=== PATIENT | female | born 1965 | race Caucasian/White ===

== ENCOUNTER 2020-09-29 10:31 | Emergency (ER) | payer OTHER ==
--- OUTSIDE RECORDS SUMMARY | 2020-09-29 10:35 | XMS REPORT | Continuity of Care Document ---
:1965 Author Organization [facility] t Address [address] [place] [address] [address]. [address] [place] [address] Care Team Providers Name Role Phone Mehrdad Primary Care Physician Loreto Herr Attending Clinician Unavailable Jagdish Ulloa MD Attending Clinician MEHRDAD Attending Clinician Unavailable Noel TEE Attending Clinician GOPI BANERJEE Attending Clinician Unavailable Payers Payer Name Policy Policy Effective Expiration Source Type Number Date Date RENAISSANCE [id number] 2020 [facility] PHYSICIANSRENAISSANCE 00:00:00 - M [facility] [id number]/03/2020-Present CIGSANJIV HEALTHSPRINGCIGNA [id number] 2018 H [facility] 00:00:00 Meth odist [id number] 2019-Prese ntHMO Problems Condition Condition Condition Status Onset Resolution Last Treating Co mments Source Name Details Category Date Date Treatment Clinician Date Thoracic Thoracic Disease Active [facility] radiculopa radiculopa 5-05 Shawna kes - thy thy 00:00: Medical 00 Center Thoracic Thoracic Disease Active Overview: [facility] I [facility] compressio compressio 5-05 T3, mild [facility] - n n 00:00: Medical fracture, fracture, 00 Cent er sequela sequela Right Right Problem Active Univers shoulder shoulder ity of pain pain [place] [facility] ans History of History of Problem Resolve Univers arthritis arthritis d ity of [place] [facility] ans History of History of Problem Resolve Univers back pain back pain d ity of [place] [facility] ans History of History of Problem Resolve Univers heart heart d ity of attack attack [place] [facility] ans History of History of Problem Resolve Univers hypertensi hypertensi d it y of on on [place] [facility] ans Calcific Calcific Problem Active Unive rs tendinitis tendinitis it y of [place] [facility] ans Biceps Biceps Problem Active Univers tendinitis tendinitis it y of of right of right [place] upper upper Physici extremity extremity ans Bursitis, Bursitis, Problem Active Uni vers subacromia subacromia it y of l l [place] [facility] ans Subacromia Subacromia Problem Active U nivers l bursitis l bursitis it y of of right of right [place] shoulder shoulder Physic i joint joint ans Tear of Tear of Problem Active Univers right right ity of [place] Physici tendon, tendon, ans initial initial encounter encounter Allergies, Adverse Reactions, Alerts Allergy Allergy Status Severity Reaction(s) Onset Inactive Treating Comm ents Source Name Type Date Date Clinician Hydrocod Propensi Active Moderate [facility] one-Acet ty to 07-18 [facility] - aminophe adverse 00:00: Medical n reaction 00 Center s Paroxeti Propensi Active Severe Drops b/p [facility] Hcl ty to 07-18 [facility] - adverse 00:00: Medical reaction 00 Center s Tramadol Propensi Active Itching [facility] ty to 07-18 [facility] - adverse 00:00: Medical reaction 00 Center s Hydrocod Propensi Active Itching "hypes [place] one ty to 4-15 up and Methodi adverse 00:00: itching." st reaction 00 s to drug Paroxeti Propensi Active Other (See "made me [facility] ne Hcl ty to Comments) 4-15 pass Methodi adverse 00:00: out." st reaction 00 s to drug hydrocod DA Active SV 2017- [facility] one 0-31 [place] 00[facility]: d 00 [facility] paroxeti DA Active SV 2017-03 [facility] ne 0-31 [place] 00:00: d 00 [facility] Center tramadol DA Active SV 2017-03 [facility] 0-31 [place] 00:00: d 00 Medical Center paroxeti DA Active NC 2016-0 [facility] ne 2-09 Clear 00:00: [place] 00 Regiona l [facility] hydrocod drug Active Univers one allergy ity [facility] Physici ans Paxil drug Active Univers allergy ity of [place] [facility] ans traMADol drug Active Univers HCl TABS allergy ity of [place] [facility] ans Family History Family Member Diagnosis Comments Start Date Stop Date Source Natural father Cancer [facility] St [place] - [facility] Unknown Family Family history of Family History University of Member diabetes mellitus [place] [facility] Unknown Family Family history of Family History University of Member Heart trouble [place] [facility] Unknown Family Family history of Family History University of Member hypertension [place] [facility] i[facility] Unknown Family Family history of Family History University of Member arthritis [place] [facility] ns Unknown Family Family history of Family History University of Member malignant neoplasm [place] [facility] Social History Social Habit Start Date Stop Date Quantity Comments Source History SDOH [facility] - Alcohol Std Drinks [facility] History SDOH [facility] - Alcohol Binge Medical Sudhakar ter Sex Assigned At [facility] St Shawna beckers - [facility] History of tobacco Cigarette Smoker Torres use Confucianist Cigarette 2020-07-24 2020-07-[address] [facility] - pack-years 00:00:00 00:00:00 [facility] Tobacco use and 2020-07-24 2020-07-[address] Shawna kes - exposure 00:00:00 00:00:00 [facility] Alcohol intake 2020-07-24 2020-07-[address] [facility] es - 00:00:00 00:00:00 non-drinker Medical Charlie hernandez (finding) Cigarettes smoked 2020-07-24 2020-07-[address] [facility] - current (pack per 00:00:00 00:00:00 Medical Center day) - Reported History SDOH 2020-07-18 2020-07-[address] [facility] - Alcohol Frequency 00:00:00 00:00:00 Medical Center Smoking Status Start Date Stop Date Source Current every day smoker 2020-07-24 00:00:[address] [facility] Medications Ordered Filled Start Stop Current Ordering Indication Dosage Frequency Signature Comments Components Source Medication Medication Date Date Medication? Clinician (SIG) Name Name HYDROcodone Yes 1{tbl} Take [address] -acetaminop 5-05 tablet by Tatiana luna - hen (NORCO 09:18: mouth Medica l 10-325) 46 every 4 Center 10-325 mg (four) per tablet hours as needed for Pain With benadryl for allergic reaction . ibuprofen Yes 800mg Take [address] (ADVIL,MOTR 5-05 mg by [facility] - [place]) 800 MG 09:18: mouth Medica l tablet 46 every 6 Center (six) hours as needed for Pain. fluticasone Yes 1{spray Q.5D [address] propionate 5-05 } Nasal [facility] - (FLONASE) 09:18: route 2 Medic al 50 46 (two) Center mcg/actuati times on nasal daily. spray gabapentin Yes 400mg Q.[id number] Take [address] (NEURONTIN) 5-05 [id number] mg by L ukes - 400 MG 09:18: 3D mouth 3 Medical capsule 46 (three) Center times daily. atorvastati Yes 40mg QD Take [address] n (LIPITOR) 5-05 by mouth Luke s - 40 MG 09:18: daily. Medical tablet 46 Center meloxicam Yes 15mg QD Take [address] (MOBIC) 15 5-05 by mouth [facility] - MG tablet 09:18: daily. Medica l 46 Center aspirin 81 Yes 81mg QD Take [address] MG EC 5-05 by mouth [facility] - tablet 09:18: daily. Medical 46 Center metoprolol Yes 50mg QD Take [address] succinate 5-05 by mouth [facility] - (TOPROL-XL) 09:18: daily. Medi courtney 50 MG 24 hr 46 Center tablet lisinopriL 2020-0 Yes 2.5mg QD Take 2.[address] (PRINIVIL,Z 5-05 mg by [facility] - ESTRIL) 2.5 09:18: mouth Medic al MG tablet 46 daily. Center metFORMIN 2020-0 Yes 850mg Take [address] (GLUCOPHAGE 5-05 mg by [facility] - ) 850 MG 09:18: mouth 2 Medica l tablet 46 (two) Center times daily with breakfast and dinner. cetirizine 2020-0 Yes 10mg QD Take [address] (ZyrTEC) 10 5-05 by mouth Luke s - MG tablet 09:18: daily. Medica l 46 Center baclofen 2020-0 Yes 10mg Q.[id number] Take [address] (LIORESAL) 5-05 [id number] by mouth 3 [facility] - 10 MG 09:18: 3D (three) Medical tablet 46 times Center daily. ticagrelor 2020-0 Yes 90mg Q.5D Take [address] (Brilinta) 5-05 by mouth 2 Tatiana es - 90 mg Tab 09:18: (two) Medical tablet 46 times Center daily. acetaminoph 2020-0 Yes 1{tbl} Take [address] en-codeine 5-05 tablet by Luke s - (TYLENOL 09:18: mouth Medical #3) 300-30 46 every 4 Center mg per (four) tablet hours as needed for Pain. diphenhydra 2020-0 Yes 25mg QD Take [address] mine HCl 5-05 by mouth [facility] - (BENADRYL 09:18: daily With Me dical ORAL) 46 the Center hydrocodon e for the itch . flash 2020-[address] glucose 5-05 Miscellane [facility] - sensor 09:18: ous route. Medic al (FreeStyle 46 Center Jabari 2 Sensor) Kit metFORMIN 2020-0 Yes 1000mg Q.5D Take 1,000 Torres (GLUCOPHAGE 4-15 mg by Methodi ) 1,000 mg 21:01: mouth 2 st tablet 36 (two) times a day with meals. lisinopriL 2020-0 Yes 20mg QD Take 20 mg [place] (PRINIVIL) 4-15 by mouth Metho di 20 mg 21:01: daily. st tablet 36 aspirin Yes 81mg QD Take 81 mg [place] (ECOTRIN) 4-15 by mouth Method i 81 MG 21:01: daily. st enteric 36 coated tablet ibuprofen No 600mg Q6H Take 1 [place] (ADVIL) 600 4-15 05-15 tablet Metho di MG tablet 00:00: 23:59 ([address] 00 :00 total) by mouth every 6 (six) hours as needed for mild pain or moderate pain for up to 30 days. acetaminoph acute pain 1{tbl} Q6H Take 1-2 Torres en-codeine -15 -25 tablets by Az rufino (TYLENOL 00:00: 23:[address] WITH 00 :00 every 6 CODEINE #3) (six) 300-30 mg hours as per tablet needed for severe pain for up to 10 days .acute pain. methocarbam No 500mg Q.25D Take 1 [place] o[place] -15 -25 tablet Methodi (ROBAXIN) 00:00: 23:59 ([address] 500 MG 00 :00 total) by tablet mouth 4 (four) times a day for 10 days. Vital Signs Vital Name Observation Time Observation Value Comments Source Systolic blood 2020-07-24 09:12:00 117 mm[Hg] [facility] Diastolic blood 2020-07-24 09:12:00 69 mm[Hg] [facility] S [facility] Heart rate 2020-07-24 09:12:00 73 /min [facility] Body temperature 2020-07-24 09:12:00 36.83 Leonei [facility] Respiratory rate 2020-07-24 09:12:00 17 /min [facility] Body height 2020-07-24 09:12:00 162.6 cm [facility] Body weight 2020-07-24 09:12:00 95.255 kg [facility] BMI 2020-07-24 09:12:00 36.05 kg/m2 [facility] Systolic blood 2020-07-04 20:45:00 134 mm[Hg] [place] [facility] pressure Diastolic blood 2020-07-04 20:45:00 79 mm[Hg] [place] on Confucianist pressure Heart rate 2020-07-04 20:45:00 86 /min Brian Germainist Respiratory rate 2020-07-04 20:45:00 18 /min Kenisha jaquez [facility] Oxygen saturation in 2020-07-04 20:45:00 96 /min Brian Germainist Arterial blood by Pulse oximetry Body temperature 2020-07-04 11:23:34 36.44 Leonie Kenisha jaquez [facility] Body height 2020-07-04 11:22:00 162.6 cm Brian [facility]ist Body weight 2020-07-04 11:22:00 95.255 kg Brian Germainist BMI 2020-07-04 11:22:00 36.05 kg/m2 Brian Kumar Procedures Procedure Date / Time Performed Performing Clinician [facility] e MRI THORACIC SPINE WO 2020-07-04 17:34:05 [place]i [place] [facility] CONTRAST MRI CERVICAL SPINE WO 2020-07-04 17:17:00 [place] [facility] CONTRAST UT APPLY LOWER LEG 2020-07-04 12:48:45 Natali [place] on Confucianist SPLINT CT HEAD WO CONTRAST 2020-07-04 12:40:[address] THORACIC SPINE WO 2020-07-04 12:40:19 Natali Lake [place] Confucianist CONTRAST CT CERVICAL SPINE WO 2020-07-04 12:39:59 Natali [place] Confucianist CONTRAST XR RIBS W PA CHEST 2020-07-04 12:30:41 Natali Lake Confucianist RIGHT XR KNEE 1 OR 2 VW 2020-07-04 12:29:55 Natali [place] Confuc[facility]ist RIGHT XR ANKLE 3+ VW RIGHT 2020-07-04 12:27:55 Natali [place] Confucianist XR HAND 3+ VW LEFT 2020-01-03 12:23:20 Trinity Croninist XR ELBOW 3+ VW LEFT 2020-01-03 12:23:02 Trinity Croninto n Confucianist MR Echeverria wo 2017-10-19 00:00:00 [facility] [place] contrast [id number] Physicians History of Back [facility] [place] [facility] History of Cervical [facility] [place] vertebral fusion Physicians History of Arterial [facility] [place] stent placement Physicians Plan of Care Planned Activity Planned Date Details Comments Source Future Scheduled 2020-11-[address] [facility] - Test 00:00:00 (Season Ended) [code = Medic al Center INFLUENZA VACCINE (Season Ended)] Future Scheduled 2020-10-20 INFLUENZA VACCINE [place] [facility] Test 00:00:00 [code = INFLUENZA VACCINE] Future Scheduled 2016-01-31 SHINGLES VACCINES ([address] [facility] - Test 00:00:00 of 2) [code = SHINGLES Medic al Center VACCINES (1 of 2)] Future Scheduled 2016-01-31 BREAST CANCER [facility] thodist Test 00:00:00 SCREENING [code = BREAST CANCER SCREENING] Future Scheduled 2016-01-31 COLONOSCOPY SCREENING [place] [facility] Test 00:00:00 [code = COLONOSCOPY SCREENING] Future Scheduled 2016-01-31 SHINGLES VACCINES (#1) [place] [facility] Test 00:00:00 [code = SHINGLES VACCINES (#1)] Future Scheduled [address] - Test 00:00:00 (procedure) [code = Medical Center 51472029] Future Scheduled [address] [facility] - Test 00:00:00 malignant neoplasm of Medica Center cervix (procedure) [code = 661409733] Future Scheduled 1987 Screening for [facility] thodist Test 00:00:00 malignant neoplasm of cervix (procedure) [code = 240015139] Future Scheduled 1985 DTAP/TDAP/TD VACCINES [facility] - Test 00:00:00 (1 - Tdap) [code = Medical C enter DTAP/TDAP/TD VACCINES (1 - Tdap)] Future Scheduled 1984-01-31 HEPATITIS C SCREENING [facility] - Test 00:00:00 [code = HEPATITIS C Medical Center SCREENING] Future Scheduled 1984-01-31 Hepatitis C screening [place] [facility] Test 00:00:00 (procedure) [code = 582760573] Future Scheduled 1978 COVID-19 VACCINE (1) [facility] - Test 00:00:00 [code = COVID-[address] VACCINE (1)] Future Scheduled 1978 COVID-19 VACCINE (1) [place] [facility] Test 00:00:00 [code = COVID-19 VACCINE (1)] Future Scheduled 1972-01-[address] [facility] - Test 00:00:00 0-64 YRS (1 of 1 - Medical C enter PPSV23) [code = PNEUMOCOCCAL VACCINE 0-64 YRS (1 of 1 - PPSV23)] Future Scheduled [address] [facility] - Test 00:00:00 [facility] breast (procedure) [code = 028507237] Future Scheduled [address] [facility] - Test 00:00:00 [facility] colon (procedure) [code = 474242915] Encounters Start End Encounter Admission Attending Care Care Encounter Source Date/Time Date/Time Type Type Clinicians Facility Department ID 2020-07-04 2020-07-04 [facility] [id number] [place] 00:00:00 00:00:00 NU 741 Method i 2020-01-03 2020-01-03 Outpatient [facility] [id number] [place] 00:00:00 00:00:00 [facility] 593 Method i 2020-01-03 2020-01-03 Outpatient [facility] [id number] [place] 00:00:00 00:00:00 [facility] [address] 2017-12-02 2017-12-02 Appointmen GOPI [facility] Orthopedics [id number] [facility] 14:15:00 14:15:00 t; GOPI BANERJEE, [facility] GERRI BANERJEE [place] ANDREW, M.D. Physici M.D. ans 2017-10-19 2017-10-19 Appointmen GOPI [facility] [id number] [facility] 13:00:00 13:00:00 t; [facility]ER[facility] BANERJEE Orthopedics [facility] Varsha TALLEY M.D. ans Results Test Description Test Test Results Result Source Time Comments Comments MRI Thoracic 2020-06- Interface, Radiology [place] Spine Wo 15 Results Incoming - Method ist Contrast 17:54:23 07/04/2020 5:57 PM CDT EXAMINATION: MRI THORACIC SPINE WO CONTRASTCOMPARISON: NoneCLINICAL HISTORY: r o possible fx ct cervical thoracic show end plate fx at T3 and possibly [id number]: Sagittal and axial MR images of the thoracic spine were obtained. FINDINGS: The mild deformity at superior T3 vertebral body does not show any significant edema. There is very minimal deformity at superior T4. There is an inferior endplate deformity at T5. This appears chronic also. There is mild disc bulge at T5-T6.T7-T8 shows a small right-sided disc protrusion. This has minimal indentation upon the cord.The lower thoracic spine shows mild facet disease.T11-12 shows minimal central spondylosis.The alignment is intact. No acute fracture. The signal within the cord is intact.IMPRESSION: Mild degenerative change. No acute fracture.[id number] MRI Cervical Interface, Radiology [place] Spine Wo 15 Results Incoming - Method ist Contrast 17:27:29 07/04/2020 5:30 PM CDT EXAMINATION: MRI CERVICAL SPINE WO CONTRASTCOMPARISON: NoneCLINICAL HISTORY: r o possible fx ct cervical thoracic show end plate fx at T3 and possibly [id number]: Sagittal and axial MR images of the cervical spine were obtained.FINDINGS: C2-C3 shows minimal left-sided facet disease. C3-4 shows mild facet disease and uncovertebral joint degenerative change and disc bulge.C4-5 shows moderate to mild facet disease. There is mild central spondylosis. There is mild uncovertebral joint degenerative change.Anterior metallic plate and screw artifact is identified from C5 to C7. C7-T1 shows mild facet disease. There is minimal disc bulge.There is mild superior endplate deformity at T3 that shows no edema to suggest an acute fracture.The alignment is intact. The signal within the cord is intact.IMPRESSION: Mild degenerative change. Postoperative change. No significant canal stenosis. The deformity at superior T3 appears chronic.[id number] CT Thoracic Interface, Radiology [place] Spine Wo 15 Results Incoming - Method ist Contrast 12:49:43 07/04/2020 12:52 PM CDT EXAMINATION: CT THORACIC SPINE WO CONTRASTCLINICAL HISTORY: fall landed on head neck and upper backCOMPARISON: NoneTECHNIQUE: Non contrast axial images of the thoracic spine were obtained with coronal and sagittal reconstructed algorithms. CT imaging was performed with iterative reconstruction technique and/or automated exposure control to reduce radiation dose.FINDINGS:There is a normal thoracic kyphosis. Alignment is maintained in the sagittal plane. There are diffuse degenerative changes.There is an T3 superior endplate deformity and to a lesser degree about the left T4 superior endplate favoring the left side. But these demonstrate less than 20% height loss and there is no retropulsion.There is also a cortical irregularity about the inferior T5 endplate that is most certainly in conjunction with a Schmorl's node without definite compression fracture. No traumatic subluxation. No suspicious osseous lesions. No significant posterior disc disease, spinal canal, subarticular zone or neural foraminal stenosis throughout the thoracic spine.There our no displaced rib fractures within the [id number].There is no mass, adenopathy or aneurysm of the visualized soft tissues. Is no evidence for acute traumatic injury to the visualized lungs. There is a partially visualized lower cervical spine ACDF.IMPRESSION: Superior endplate cortical irregularities about T3 and to a lesser degree at T4, these appear to have a chronic appearance however indeterminate without prior for comparison. If there is ongoing clinical concern MRI recommended to rule out acute component.[id number] CT Cervical 2020-06- Interface, Radiology [place] Spine Wo 15 Results Incoming - Method ist Contrast 12:49:07 07/04/2020 12:52 PM CDT EXAMINATION: CT CERVICAL SPINE WO CONTRASTCLINICAL HISTORY: fall landed on head neck upperbackCOMPARISON: None.TECHNIQUE: CT imaging was performed with iterative reconstruction technique and/or automated exposure control to reduce radiation dose.Findings:Spinal canal contents and ligamentous structures are suboptimally evaluated on CT.No acute fractures of the cervical spine.Cervical spine alignment is within normal limits.C5-C7 anterior cranial vertebral screws, surgical plate and disc graft. There is solid bony bridging at disc spaces. No evidence of hardware loosening.Multilevel degenerative changes.T3 superior endplate compression fracture of undetermined age.IMPRESSION:No acute fractures of the cervical spine.T3 superior endplate compression fracture of undetermined age.[id number] Splint 2020-06- Natali Lake, Kenisha ton Application 15 BREEDER HEN SERVICE TECHNICIAN-C 07/04/2020 9:41 Confucianist 12:48:45 PMSplint ApplicationPerformed by: Natali Lake NP-CAuthorized by: Nu Ulloa MD Consent: Consent obtained: Verbal Consent given by: Patient Risks discussed: Skin discoloration, distal paresthesia, pain and swelling Alternatives discussed: No treatment, delayed treatment, referral, observation and alternative treatmentPre-procedure details: Sensation: Normal Skin color: PinkProcedure details: Laterality: Right Location: Ankle Ankle: R ankle Cast type: Short leg Splint type: Short leg Supplies: Elastic bandage, cotton padding and Ybeef-ZjtbySoyt-atkbjvln e details: Pain: Improved Sensation: Normal Skin color: [place] Patient tolerance of procedure: Tolerated well, no immediate complications XR Ribs W Pa 2020-06[facility] Interface, Radiology [place] Chest Right 15 Results Incoming - Metho dist 12:48:36 07/04/2020 12:51 PM CDT EXAMINATION: XR RIBS W IN CHEST RIGHTCLINICAL HISTORY: Fall, acute injury, right lateral rib painCOMPARISON: NoneFINDINGS: There are fractures of the right eighth and ninth ribs anterolaterally but both appear chronic and healed. No other fracture is seen. No acute rib fracture is seen.The lungs are clear. There is no pleural fluid or pneumothorax. Heart size is within normal range. There is a coronary artery stent. There has been C-spine fusion. There is arthritis of both AC joints.IMPRESSION: No acute [id number] XR Knee 1 Or 2 2020-06[facility] Interface, Radiology [facility] Right 15 Results Incoming - Method ist 12:45:52 07/04/2020 12:49 PM CDT EXAMINATION: XR KNEE 1 OR 2 RIGHTCLINICAL HISTORY: Fall, acute injury, knee painCOMPARISON: NoneFINDINGS: Alignment is normal and no fracture is seen.IMPRESSION: Negative [id number] XR Ankle 3+ Vw 2020-06- Interface, Radiology [place] Right 15 Results Incoming - Method ist 12:45:18 07/04/2020 12:48 PM CDT EXAMINATION: XR ANKLE 3 VW RIGHTCLINICAL HISTORY: Fall, acute injuryCOMPARISON: NoneFINDINGS: There is an acute oblique fracture of the distal fibular metaphysis with mild lateral and posterior displacement. No other definite acute fracture is seen. The small bony fragments at the tip of the medial malleolus appear most likely chronic. There is slight widening of the medial ankle joint due to slight lateral talar subluxation. Soft tissue swelling is present mainly laterally. There is mild dorsal midfoot arthritis.IMPRESSION: Acute distal fibular [id number] CT Head Wo 2020-06- Interface, Radiology [facility] Contrast 15 Results Incoming - Method ist 12:44:23 07/04/2020 12:47 PM CDT EXAMINATION: CT HEAD WO CONTRASTCOMPARISON: NoneCLINICAL HISTORY: fall landed on head neck upper backCOMMENTS: Axial CT scan slices of the head were obtained. Sagittal and coronal reconstructions were obtained.CT imaging was performed with iterative reconstruction technique and/or automated exposure control to reduce radiation dose.FINDINGS: There is no significant sinus or mastoid opacification. The bone windows do not show an acute skull fracture.The brain shows no focal suspicious lesion.IMPRESSION: No acute intracranial hemorrhage or mass effect.[id number] BASIC METABOLIC PANEL 2019-05-18 04:36:00 Test Item Value Reference Range Interpretation Comme nts SODIUM (test code = NA) 139 mmol/L 137-145 N POTASSIUM (test code = K) 4.2 mmol/L 3.4-5.0 N CHLORIDE (test code = CL) 107 mmol/L 98-107 N CARBON DIOXIDE (test code = 23 mmol/L 22-30 N CO2) GLUCOSE (test code = GLU) 142 mg/dL 74-106 H BLOOD UREA NITROGEN (test code 15 mg/dL 7-17 N = BUN) GLOMERULAR FILTRATION RATE 111 >60 T he estimated glomerular (test code = GFR) filtration rate is computed usingpatient ra ce, age (>18), sex, and serum creatinine. If anyof the neede d data elements are missing the Laboratory cannot compute an estimation of the glomerular filtration rate. CREATININE (test code = CREAT) 0.6 mg/dL 0.5-1.0 N CALCIUM (test code = CA) 8.8 mg/dL 8.4-10.2 N CBC W/AUTO [id number] 04:29:00 Test Item Value Reference Range Interpretation Comments WHITE BLOOD CELL (test code = 11.8 x10 3/uL 5.0-12.0 N WBC) RED BLOOD CELL (test code = 4.62 x10 6/uL 4.20-5.40 N RBC) HEMOGLOBIN (test code = HGB) 13.7 g/dL 12.0-16.0 N HEMATOCRIT (test code = HCT) 44.4 % 36.0-46.0 N MEAN CELL VOLUME (test code = 96 fL 81-99 N MCV) MEAN CELL HGB (test code = MCH) 29.7 pg 27-31 N MEAN CELL HGB CONCENTRATION 30.9 g/dL 33-37 L (test code = MCHC) RED CELL DISTRIBUTION WIDTH 13.4 % 11.5-15.5 N (test code = RDW) PLATELET COUNT (test code = 261 x10 3/uL 130-400 N PLT) MEAN PLATELET VOLUME (test code 9.7 fL 9.4-16.4 N = MPV) NEUTROPHIL % (test code = NT%) 65.4 % 43-65 H IMMATURE GRANULOCYTE % (test 0.3 % 0.0-2.0 N code = IG%) LYMPHOCYTE % (test code = LY%) 24.9 % 20.5-45.5 N MONOCYTE % (test code = MO%) 7.7 % 5.5-11.7 N EOSINOPHIL % (test code = EO%) 1.4 % 0.9-2.9 N BASOPHIL % (test code = BA%) 0.3 % 0.2-1.0 N NUCLEATED RBC % (test code = 0.0 % 0-1.0 N NRBC%) NEUTROPHIL # (test code = NT#) 7.68 x10 3/uL 2.2-4.8 H IMMATURE GRANULOCYTE # (test 0.04 x10 3/uL 0-0.03 H code = IG#) LYMPHOCYTE # (test code = LY#) 2.93 x10 3/uL 1.3-2.9 H MONOCYTE # (test code = MO#) 0.90 x10 3/uL 0.3-0.8 H EOSINOPHIL # (test code = EO#) 0.16 x10 3/uL 0.0-0.2 N BASOPHIL # (test code = BA#) 0.04 x10 3/uL 0.0-0.1 N [id number] 10:47:00 Test Item Value Reference Range Interpretation Comments ACT-ISTAT (test code = ACTI) 263 SEC 74-125 H CBC W/AUTO [id number] 06:42:00 Test Item Value Reference Range Interpretation Comments WHITE BLOOD CELL (test code = 8.4 x10 3/uL 5.0-12.0 N WBC) RED BLOOD CELL (test code = 4.60 x10 6/uL 4.20-5.40 N RBC) HEMOGLOBIN (test code = HGB) 14.3 g/dL 12.0-16.0 N HEMATOCRIT (test code = HCT) 43.4 % 36.0-46.0 N MEAN CELL VOLUME (test code = 94 fL 81-99 N MCV) MEAN CELL HGB (test code = MCH) 31.1 pg 27-31 H MEAN CELL HGB CONCENTRATION 32.9 g/dL 33-37 L (test code = MCHC) RED CELL DISTRIBUTION WIDTH 13.6 % 11.5-15.5 N (test code = RDW) PLATELET COUNT (test code = 270 x10 3/uL 130-400 N PLT) MEAN PLATELET VOLUME (test code 9.7 fL 9.4-16.4 N = MPV) NEUTROPHIL % (test code = NT%) 49.9 % 43-65 N IMMATURE GRANULOCYTE % (test 0.4 % 0.0-2.0 N code = IG%) LYMPHOCYTE % (test code = LY%) 40.7 % 20.5-45.5 N MONOCYTE % (test code = MO%) 6.7 % 5.5-11.7 N EOSINOPHIL % (test code = EO%) 1.8 % 0.9-2.9 N BASOPHIL % (test code = BA%) 0.5 % 0.2-1.0 N NUCLEATED RBC % (test code = 0.0 % 0-1.0 N NRBC%) NEUTROPHIL # (test code = NT#) 4.21 x10 3/uL 2.2-4.8 N IMMATURE GRANULOCYTE # (test 0.03 x10 3/uL 0-0.03 N code = IG#) LYMPHOCYTE # (test code = LY#) 3.42 x10 3/uL 1.3-2.9 H MONOCYTE # (test code = MO#) 0.56 x10 3/uL 0.3-0.8 N EOSINOPHIL # (test code = EO#) 0.15 x10 3/uL 0.0-0.2 N BASOPHIL # (test code = BA#) 0.04 x10 3/uL 0.0-0.1 N PROTHROMBIN [id number] 06:19:00 Test Item Value Reference Range Interpretation Comments PROTHROMBIN TIME 10.9 SECONDS 9.2-12.1 N PATIENT (test code = PTP) INTERNATIONAL NORMAL 1.0 The INR is to be used RATIO (test code = only for monitoring INR) ORAL ANTICOAGULANTTH ERAPY. Indicati on INR Value1. Prophylaxis/sharon atment of: Venous Thrombosis, Pul monary Embolism 2.0 - 3.02. Preventi on of systemic emboli sm from: Tiss ue heart valves 2.0 - 3.0 Acute myocardial infa rction (to present systemic emboli sm)* 2.0 - 3.0 Valvular heart disease 2.0 - 3.0 Atrial fibrillation 2.0 - 3.03. Chairman Ceo al prosthetic valv es (high risk) 2.5 - 3.5 * If oral anticoagulant t herapy is elected to preventrecurren t myocardial infa rction, an INR of 2.5-3 .5 isrecommended, consistent with Food and Drug Administrationr ecommen dations. IS PATIENT ON ANTICOAGULANTS ? NOLIST ANTICOAGULANT/ANTI PLT MEDICATION: PROCEDURESpec Comments:PROCEDURETHROMBOPLASTIN TIME [id number] 06:19:00 Test Item Value Reference Range Interpretation Comments THROMBOPLASTIN TIME 29.1 SECONDS 23.4-37.0 N Therap eutic Range PARTIAL (test code = for Hep brittany PTT) EFFECTIVE Heparin IU/mL aPT T Seconds0.3 64.30.7 88.8 IS PATIENT ON ANTICOAGULANTS ? NOLIST ANTICOAGULANT/ANTI PLT MEDICATION: PROCEDURESpec Comments:PROCEDUREBASIC METABOLIC [id number] 06:17:00 Test Item Value Reference Range Interpretation Comments SODIUM (test code = 137 mmol/L 137-145 N NA) POTASSIUM (test code 4.1 mmol/L 3.4-5.0 N = K) CHLORIDE (test code = 105 mmol/L 98-107 N CL) CARBON DIOXIDE (test 24 mmol/L 22-30 N code = CO2) GLUCOSE (test code = 129 mg/dL 74-106 H GLU) BLOOD UREA NITROGEN 14 mg/dL 7-17 N (test code = BUN) GLOMERULAR FILTRATION 137 >60 The es timated RATE (test code = glomerular filtration GFR) rate is compute d usingpatient ra ce, age (>18), sex, and serum creatinine. If anyof the needed data elements are mi ssing the Laboratory cannot compute an blu mation of the glomerul ar filtration rate . CREATININE (test code 0.5 mg/dL 0.5-1.0 N = CREAT) CALCIUM (test code = 8.9 mg/dL 8.4-10.2 N CA) - CT C-SPINE W/O [id number] 13:31:00 FAX: Davis Palma MD [phone] [place]: St: ADM Name: ASTRID SOTO [facility] : 1965 Age/S: 54/F [address] Unit: [id number] Loc: C.[address] [place] [address] Phys: Davis Diaz MD Acct: [id number] Dis Date: Status: ADM IN PHONE #: [phone] Exam Date: 05/16/2019 1315 FAX #: [phone] Reason: C RADICULOPATHY EXAMS: CPT CODE: [id number] CT C-SPINE W/O CONT [id number] EXAM: - CT C-SPINE W/O CONT HISTORY: Cervical radiculopathy Location code:C3 TECHNIQUE: Axial tomograms through the cervical spine were obtained without intravenous contrast. Sagittal and coronal reformatted images are provided. One or more of the following dose reduction techniques were used: Automated exposure control, adjustment of the mA and/or kV according to patient size, and/or utilization of iterative reconstruction technique. DLP: 282 mGy-cm. COMPARISON: 04/18/2014 FINDINGS: ACDF changes from C5 through C7 are similar. The hardware appears intact and fully engaged. Degenerative disc disease at C4-5 is unchanged. Mild diffuse cervical facet arthropathy is similar to prior exam. Vertebral body heights and alignment are appropriate. There is no acute fracture. Prevertebral soft tissues and predental space are maintained. IMPRESSION: 1. No acute osseous abnormality. at 1331 Reported and signed by: Jorje Escobedo MD CC: Davis Diaz MD Technologist: ANA BUTLER Trnscrd Dt/Tm: 05/16/2019 (1701) t.[email or web address] Orig Print D/T: S: 05/16/2019 (3654 PAGE 1 Signed ReportCARDIAC ENZYMES [id number] 18:01:00 Test Item Value Reference Range Interpretation Comments TROPONIN-I < 0.012 ng/mL 0.012-0.033 L (test code = TROPI) Pleas e be advised of the updated reference range s for the new Chemistry instrumentation . * * VITROS TROPONIN I CRITERIANORM AL PATIENT W/O CIRCULATING TNI: 0.012-0.033 ng/mLCIRCULATIN G TNI PRESENT: 0.034- 0.119 ng/mL(MAY BE AT RISK OF AMI)AMI DIAGNOS TIC CUTOFF: >/= 0.1 20 ng/mL~~~~~~~~~~ ~~~~~~~~~~ ~~~~~~~~~~~~~~~ ~~~~~~~~~~ ~~~~~~~~~~~~~~T he use of serial sampling and testing protoco l is arecommended pr actice.An elevated tropon in level alone is often not sufficient dumont iagnosis of myocardial i nfarction. Troponin result s obtained by different as says may vary.Evaluation of the extent of myoca rdial damage based on increase of troponin wou ld be valid only if similarmethodol ogy is used.~~~~~~~~~~ ~~~~~~~~~~ ~~~~~~~~~~~~~~~ ~~~~~~~~~~ ~~~~~~~~~~~~~~ - CTA CHEST FOR [id number] 15:20:00 FAX: Davis Palma MD [phone] [place]: St: ADM FAX: Peter Wills MD [phone] Name: ASTRID SOTO [facility] : 1965 Age/S: 54/F [address] Unit: [id number] Loc: [place] [address] Phys: Peter Woodson MD Acct: [id number] Dis Date: Status: ADM IN PHONE #: [phone] Exam Date: 05/15/2019 1511 FAX #: [phone] Reason: chest pain/back pain EXAMS: CPT CODE: [id number] [place] [address] LOCATION: T18 EXAM: CTA CHEST WITH CONTRAST, PE PROTOCOL INDICATION: chest pain/backpain COMPARISON: Chest x-ray May 04, 2018 TECHNIQUE: Helically acquired axial CT images of the chest were obtained with reconstructions in the coronal and sagittal planes. 100 ml of Isovue 370 was given intravenously. Up-to-date CT equipment and radiation dose reduction techniques were utilized. Automatic exposure control was utilized. MIP coronal reformats provided. FINDINGS: Limited views the inferior neck soft tissuesare normal. No pulmonary embolism is seen. No aortic dissection or aneurysm is identified. The heart is normal in size. No pericardial effusion is seen. No mediastinal or hilar adenopathy is seen. The trachea and main bronchi are patent. Dependent lower lobe subsegmental ectasis present. No consolidation or pleural effusion is seen.Left adrenal nodule present with density consistent with adenoma. This measures 2.6 cm in size. Upper abdomen is otherwise unremarkable. Endplate osteophytes spine present.Peripheral soft tissues are unremarkable. IMPRESSION: No pulmonary embolism. No aortic dissection or aneurysm. Mild dependent bilateral lower lobe subsegmental atelectasis. Left adrenal adenoma. at 1520 Reported and signed by: Erich Everett MD PAGE 1 Signed Report (CONTINUED) FAX: Davis Palma MD [phone] [place]: St: ADM FAX: Peter Wills MD [phone] Name: ASTRID SOTO [facility] : 1965 Age/S: 54/F [address] Unit: [id number] Loc: [place] [address] Phys: Peter Woodson MD Acct: [id number] Dis Date: Status: A DM IN PHONE #: [phone] Exam Date: 05/15/2019 1511 FAX #: [phone] Reason: chest pain/back pain EXAMS: CPT CODE: [id number] [place] [address] <Continued> CC: Liz Diaz MD; Peter Woodson MD Technologist: WASHINGTON BENTON; Jessica Gravesscrd Dt/Tm: 05/15/2019 (6170) [email or web address].[email or web address] Orig Print D/T: S: 05/15/2019 (1523 PAGE 2 Signed ReportBEDSIDE CREATININE 2019-05-15 15:09:00 Test Item Value Reference Range Interpretation Comments BEDSIDE CREATININE (test code = 0.5 mg/dL 0.52-1.04 L CREATBED) CARDIAC ENZYMES [id number] 12:34:00 Test Item Value Reference Range Interpretation Comments TROPONIN-I < 0.012 ng/mL 0.012-0.033 L (test code = TROPI) Pleas e be advised of the updated reference range s for the new Chemistry instrumentation . * * VITROS TROPONIN I CRITERIANORM AL PATIENT W/O CIRCULATING TNI: 0.012-0.033 ng/mLCIRCULATIN G TNI PRESENT: 0.034- 0.119 ng/mL(MAY BE AT RISK OF AMI)AMI DIAGNOS TIC CUTOFF: >/= 0.1 20 ng/mL~~~~~~~~~~ ~~~~~~~~~~ ~~~~~~~~~~~~~~~ ~~~~~~~~~~ ~~~~~~~~~~~~~~T he use of serial sampling and testing protoco l is arecommended pr actice.An elevated tropon in level alone is often not sufficient dumont iagnosis of myocardial i nfarction. Troponin result s obtained by different as says may vary.Evaluation of the extent of myoca rdial damage based on increase of troponin wou ld be valid only if similarmethodol ogy is used.~~~~~~~~~~ ~~~~~~~~~~ ~~~~~~~~~~~~~~~ ~~~~~~~~~~ ~~~~~~~~~~~~~~ LIPID PROFILE (CORONARY RISK)2019-05-15 08:06:00 Test Item Value Reference Range Interpretation Comments TRIGLYCERIDES (test 149 mg/dL TRIGLYCE RIDES code = TRIG) REFERENCE RANGE:Normal: < 150 mg/dLBorderline High: 150-199 mg/dLHigh: 200- 499 mg/dLVery High: >=500 mg/dL CHOLESTEROL (test 176 mg/dL CHOLESTERO L code = CHOL) REFERENCE RANGE:DESIRABLE : < 200 mg/dLBORDER LINE: 200-239 mg/dLHI GH: >=240 mg/dL HDL CHOLESTEROL (test 49 mg/dL 40-59 N code = HDL) LIPOPROTEIN LDL (test 103.34 mg/dL 32-99 H code = LDLC) CORONARY RISK FACTOR 3.59 (test code = RISK) CHOL/HD L RISK MALE: 1/2 AVG 3.43 FEMALE: 1/2 AVG 3.27 AVG 4.97 AVG 4.44 2X AVG 9.55 2X AVG 7 .05 3X A VG 23.39 3X AVG 11.04~~~~~~~~~~ ~~~~~ ~~~~~~~~~~~~~~~ ~~~~~ ~~~~~~~~~~~~~~~ ~~~~~ ~~~~~National Cholesterol Education (NCEP ) Guidelines:~~~~ ~~~~~ ~~~~~~~~~~~~~~~ ~~~~~ ~~~~~~~~~~~~~~~ ~~~~~ ~~~~~~~~~~~ HDL Cholesterol<4 0mg/d L: HDL Choleste rol (Major risk fac tor for CHD)>60mg/d L: HDL Cholesterol (Negative risk factor for CHD)40-59mg/dL: Borderline Risk * *LDL Cholesterol<1 00mg/ dL: Desirable L DL-C awkmjvaftyorf24 0-159 mg/dL: Borderli ne High Risk LDL-C tfdrpesghaxjc29 0-189 mg/dL: High ris k LDL-C concentra tion HDL-LDL Cholest beth is affected by a number of facto rs suchas smoking, age and sex.~~~~~~~~~~~ ~~~~~ ~~~~~~~~~~~~~~~ ~~~~~ ~~~~~~~~~~~~~~~ ~~~~~ ~~~~ CARDIAC ENZYMES [id number] 08:06:00 Test Item Value Reference Range Interpretation Comments TROPONIN-I (test code = TROPI) ng/mL 0.012-0.033 LIPID PROFILE (CORONARY RISK)2019-05-15 08:06:00 Test Item Value Reference Range Interpretation Comments TRIGLYCERIDES (test 149 mg/dL TRIGLYCE RIDES code = TRIG) REFERENCE RANGE:Normal: < 150 mg/dLBorderline High: 150-199 mg/dLHigh: 200- 499 mg/dLVery High: >=500 mg/dL CHOLESTEROL (test 176 mg/dL CHOLESTERO L code = CHOL) REFERENCE RANGE:DESIRABLE : < 200 mg/dLBORDER LINE: 200-239 mg/dLHI GH: >=240 mg/dL HDL CHOLESTEROL (test 49 mg/dL 40-59 N code = HDL) LIPOPROTEIN LDL (test 103.34 mg/dL 32-99 H code = LDLC) CORONARY RISK FACTOR 3.59 (test code = RISK) CHOL/HD L RISK MALE: 1/2 AVG 3.43 FEMALE: 1/2 AVG 3.27 AVG 4.97 AVG 4.44 2X AVG 9.55 2X AVG 7 .05 3X A VG 23.39 3X AVG 11.04~~~~~~~~~~ ~~~~~ ~~~~~~~~~~~~~~~ ~~~~~ ~~~~~~~~~~~~~~~ ~~~~~ ~~~~~National Cholesterol Education (NCEP ) Guidelines:~~~~ ~~~~~ ~~~~~~~~~~~~~~~ ~~~~~ ~~~~~~~~~~~~~~~ ~~~~~ ~~~~~~~~~~~ HDL Cholesterol<4 0mg/d L: HDL Choleste rol (Major risk fac tor for CHD)>60mg/d L: HDL Cholesterol (Negative risk factor for CHD)40-59mg/dL: Borderline Risk * *LDL Cholesterol<1 00mg/ dL: Desirable L DL-C mxtfbogqcfxgd62 0-159 mg/dL: Borderli ne High Risk LDL-C lanxhbzcnzjac35 0-189 mg/dL: High ris k LDL-C concentra tion HDL-LDL Cholest beth is affected by a number of facto rs suchas smoking, age and sex.~~~~~~~~~~~ ~~~~~ ~~~~~~~~~~~~~~~ ~~~~~ ~~~~~~~~~~~~~~~ ~~~~~ ~~~~ CARDIAC ENZYMES [id number] 08:06:00 Test Item Value Reference Range Interpretation Comments TROPONIN-I < 0.012 ng/mL 0.012-0.033 L (test code = TROPI) Yossi lindquist be advised of the updated reference range s for the new Chemistry instrumentation . * * VITROS TROPONIN I CRITERIANORM AL PATIENT W/O CIRCULATING TNI: 0.012-0.033 ng/mLCIRCULATIN G TNI PRESENT: 0.034- 0.119 ng/mL(MAY BE AT RISK OF AMI)AMI DIAGNOS TIC CUTOFF: >/= 0.1 20 ng/mL~~~~~~~~~~ ~~~~~~~~~~ ~~~~~~~~~~~~~~~ ~~~~~~~~~~ ~~~~~~~~~~~~~~T he use of serial sampling and testing protoco l is arecommended pr actice.An elevated tropon in level alone is often not sufficient dumont iagnosis of myocardial i nfarction. Troponin result s obtained by different as says may vary.Evaluation of the extent of myoca rdial damage based on increase of troponin wou ld be valid only if similarmethodol ogy is used.~~~~~~~~~~ ~~~~~~~~~~ ~~~~~~~~~~~~~~~ ~~~~~~~~~~ ~~~~~~~~~~~~~~ LIPID PROFILE (CORONARY RISK)2019-05-15 07:54:00 Test Item Value Reference Range Interpretation Comments TRIGLYCERIDES (test 149 mg/dL TRIGLYCE RIDES code = TRIG) REFERENCE RANGE:Normal: < 150 mg/dLBorderline High: 150-199 mg/dLHi gh: 200-499 mg/dLVe ry High: >=500 mg/ dL CHOLESTEROL (test code 176 mg/dL VIRI STEROL REFERENCE = CHOL) RANGE:DESIRABLE : < 200 mg/dLBORDERLINE : 200-239 mg/dLHI GH: >=240 mg/dL HDL CHOLESTEROL (test 49 mg/dL 40-59 N code = HDL) LIPOPROTEIN LDL (test mg/dL 32-99 code = LDLC) CORONARY RISK FACTOR 3.59 (test code = RISK) CHOL/HDL RISK MALE: 1/2 AVG 3.43 FEMALE: 1/2 AV G 3.27 AVG 4.97 AVG 4.44 2X AVG 9.55 2X AVG 7.05 3X AVG 23.39 3X AVG 11.04~~~~~~~~~~ ~~~~~~~ ~~~~~~~~~~~~~~~ ~~~~~~~ ~~~~~~~~~~~~~~~ ~~~~~~N ational Cholest beth Education (NCEP ) Guidelines:~~~~ ~~~~~~~ ~~~~~~~~~~~~~~~ ~~~~~~~ ~~~~~~~~~~~~~~~ ~~~~~~~ ~~~~~ HDL Cholesterol<4 0mg/dL: HDL Cholesterol (Major risk factor for CHD)>60mg/dL: H DL Cholesterol (Ne gative risk factor for CHD)40-59mg/dL: Borderline Risk L DL Cholesterol<1 00mg/dL : Desirable LDL -C pjwbqkdbkaxrw48 0-159mg /dL: Borderline High Risk LDL-C zizwxoavvhpff22 0-189mg /dL: High risk LDL-C concentration H DL-LDL Cholesterol is affected by a n umber of factors such as smoking, age an d sex.~~~~~~~~~~~ ~~~~~~~ ~~~~~~~~~~~~~~~ ~~~~~~~ ~~~~~~~~~~~~~~~ ~~~~~ CARDIAC ENZYMES [id number] 07:54:00 Test Item Value Reference Range Interpretation Comments TROPONIN-I (test code = TROPI) ng/mL 0.012-0.033 TROPONIN I [id number] 07:17:00 Test Item Value Reference Range Interpretation Comments TROPONIN I RAPID 0.00 ng/mL 0.00-0.079 N ISTAT (test code = TROPONIN I TROPIRAP) CRITERIA0.00-0. 08 ng/mL - Negative>0.08 n g/mL - Positive The us e of serial sampling and te sting protocol is are commended practice.An germania vated troponin level alone is often not suffi cient fordiagnosis of myocardial infarction. Tro ponin results obtaine d by different assay s may vary.Evaluation of the extent of myoca rdial damage based on increase of troponin would be valid only if similar methodology is used. BASIC METABOLIC [id number] 08:44:00 Test Item Value Reference Range Interpretation Comments SODIUM (test code = NA) 138 mEq/L 134-147 N POTASSIUM (test code = 3.9 mEq/L 3.4-5.0 N K) CHLORIDE (test code = 108 mEq/L 100-108 N CL) CARBON DIOXIDE (test 24 mEq/L 21-33 N code = CO2) ANION GAP (test code = 10 0-20 N GAP) GLUCOSE (test code = 119 mg/dL 70-110 H GLU) BLOOD UREA NITROGEN 11 mg/dL 7-18 N (test code = BUN) GLOMERULAR FILTRATION 75.3 90-95 L Units of measure = RATE (test code = GFR) ml/mi n/1.73 m2 CREATININE (test code = 0.8 mg/dL 0.6-1.3 N CREAT) CALCIUM (test code = 8.0 mg/dL 8.0-10.5 N CA) CBC W/AUTO [id number] 08:36:00 Test Item Value Reference Range Interpretation Comments WHITE BLOOD CELL (test code = 13.72 x10 3/uL 4.5-11.0 H WBC) RED BLOOD CELL (test code = 3.49 x10 6/uL 3.54-5.02 L RBC) HEMOGLOBIN (test code = HGB) 10.3 g/dL 11.0-15.0 L HEMATOCRIT (test code = HCT) 31.9 % 33.0-45.0 L MEAN CELL VOLUME (test code = 91.4 fL 81.0-99.0 N MCV) MEAN CELL HGB (test code = 29.5 pg 27.0-33.0 N MCH) MEAN CELL HGB CONCETRATION 32.3 g/dL 33.0-37.0 L (test code = MCHC) RED CELL DISTRIBUTION WIDTH CV 13.6 % 11.5-14.5 N (test code = RDW) RED CELL DISTRIBUTION WIDTH SD 45.2 fL 37.0-54.0 N (test code = RDW-SD) PLATELET COUNT (test code = 265 x10 3/uL 150-400 N PLT) MEAN PLATELET VOLUME (test 10.0 fL 7.0-9.0 H code = MPV) NEUTROPHIL % (test code = NT%) 62.3 % 56.0-77.0 N IMMATURE GRANULOCYTE % (test 0.3 % 0.0-2.0 N code = IG%) LYMPHOCYTE % (test code = LY%) 27.1 % 14.0-32.0 N MONOCYTE % (test code = MO%) 10.0 % 4.8-9.0 H EOSINOPHIL % (test code = EO%) 0.1 % 0.3-3.7 L BASOPHIL % (test code = BA%) 0.2 % 0.0-2.0 N NUCLEATED RBC % (test code = 0.0 % 0-0 N NRBC%) NEUTROPHIL # (test code = NT#) 8.55 x10 3/uL 2.0-7.6 H IMMATURE GRANULOCYTE # (test 0.04 x10 3/uL 0.00-0.03 H code = IG#) LYMPHOCYTE # (test code = LY#) 3.72 x10 3/uL 1.0-3.8 N MONOCYTE # (test code = MO#) 1.37 x10 3/uL 0.1-0.8 H EOSINOPHIL # (test code = EO#) 0.01 x10 3/uL 0.0-0.2 N BASOPHIL # (test code = BA#) 0.03 x10 3/uL 0.0-0.2 N NUCLEATED RBC # (test code = 0.00 x10 3/uL 0.0-0.1 N NRBC#) MANUAL DIFF REQUIRED (test NO code = MDIFF) - XR PELVIS 03/23 [id number] 10:59:00 FAX: Washington Giles [phone] [place]: St: ADM FAX: Juli Larry [phone] FAX: Jorje Paniagua [phone] Name: ASTRID SOTO [facility] : 1965 Age/S: 53/F [address] [place] [address] Unit #: [id number] Loc: [place] [address] Phys: Jorje Crocker Acct: [id number] Dis Date: Status: ADM IN PHONE #: [phone] Exam Date: 06/27/2018 1057 FAX #: [phone] Reason: Post op KYAW EXAMS: CPT CODE: [id number] XR PELVIS 1/2 VIEWS 99281 PELVIS AP VIEW 06/27/2018 COMPARISON: None CLINICAL HISTORY: Post op KYAW FINDINGS: No acute fracture or dislocation is noted. A left hip prosthesis is present and is in anatomic alignment. Air is seen in the soft tissues of the left hip secondary to the recent surgery. Joint space narrowing noted in the right hip joint. CONCLUSION: Status post left hip hemiarthroplasty. at 1054 Reported and signed by: Michael Tidwell M.D. CC: Washington Roy MD; Marilu Bruner; Jorje TEE Technologist: RT Bettie(Artis) Trnscrd Date/Time/By: 06/27/2018 (5130) : By: [email or web address] Orig Print D/T: S: 06/27/2018 (8523) PAGE 1 Signed Report- XR FLUOROSCOPY 0-60 [id number] 10:13:00 FAX: Washington Giles [phone] [place]: St: [facility] FAX: Juli Larry [phone] Name: ASTRID SOTO [facility] : 1965 Age/S: 53/F [address] [place] [address] Unit #: [id number] Loc: [place] [address] Phys: Washington Roy MD Acct: [id number] Dis Date: Status: ADM IN PHONE #: [phone] Exam Date: 06/27/2018 0930 FAX #: [phone] Reason: LEFT HIP OSTEOARTHRITIS EXAMS: CPT CODE: [id number] XR FLUOROSCOPY 0-60 MIN 34397 Fluoroscopic guidance was provided by the radiology department for intraoperative procedure. Any images obtained will be interpreted by the performing physician. Fluoro time: 40 seconds offluoroscopy time. Reference air kerma: 14.4 mGy. END OF IMPRESS ION SL: [id number] at 1013 Reported and signed by: Nu Cronin M.D. CC: Washington Roy MD; Marilu Bruner Technologist: Jennifer Weiss RT(R); RT Babatunde(R) Trnmejyotsna Date/Time/By: 06/27/2018 (1013) : By: Obed Orig Print D/T: S: 06/27/2018 (1016) PAGE 1 Signed ReportHCG SERUM [id number] 10:45:00 Test Item Value Reference Range Interpretation Comments HCG SERUM QUAL (test code = SERUM NEGATIVE NEGATIVE HCGQL) SURGICAL [id number] 07:46:00 RUN DATE: 05/12/18 [facility] *LIVE* PAGE 1 RUN TIME: 10 Specimen Inquiry RUN USER: INTERFACE PATIENT: ASTRID SOTO LOC: [place] #: [id number] AGE/SX: 53/F ROOM: [place] RE05/06/18REG DR: Radhames Rodriguez : [birth year] BED: 3 DIS: 05/06/18 STATUS: DIS IN TLOC: SPEC #: [id number] RECD: 05/06/18 STATUS: TEVIN REQ #: [id number] TYLER: 05/06/[address]: Radhames Rodriguez MD ENTERED: 05/11/18 SP TYPE: SURG SPEC OTHR DR: Marilu Bruner MD ORDERED: GM LEVEL 4 CODES: [id number] - VERTEBRA, NOS [id number] - SOFT TISSUES, N COPIES TO: Marilu Martinez MD [address] [address] [place] [address] [place] [address] [facility] [address] [place] [address] PROCEDURES: GM LEVEL 4 (Incomplete) TISSUES: 1. VERTEBRA, NOS - Bone, L3-4, segments 2. SOFT TISSUES, NOS - Soft tissues, L3-4, segments FINAL DIAGNOSIS Bone, L3-4, segments: Degenerative changes. Soft tissue, L3-4, segments: Benign fibroadipose tissue. GROSS AND MICROSCOPIC GROSS DESCRIPTION: Received in formalin and labeled "lamina" are multiple apple fibrous, bony, and cartilaginous fragments, 2.7 cm in largest dimension the aggregate. Entirely submitted after decalcification. Specimen #2 are 2 segments of pink-apple tissue measuring 0.6 cm in largest dimension the aggregate. Entirely submitted (B). MICROSCOPIC EXAMINATION: Sections reveal fragments of bone, cartilage, and soft tissue with degenerative changes. The second specimen reveals benign fibroadipose tissue. Clinical correlation is recommended. CONTINUED ON NEXT PAGE RUN DATE: 05/12/18 [facility] *LIVE* PAGE 2 RUN TIME: 745 Specimen Inquiry RUN USER: INTERFACE SPEC #: [id number] PATIENT: ASTRID SOTO #[id number] (Continued) POST-OP DIAGNOSIS None givenPRE-OP DIAGNOSIS Lumbar stenosis with neurgenic claudication Signed SIGNATURE ON FILE Queta Rodriguez MD 05/12/18 0746 END OF REPORT - XR FLUOROSCOPY 0-60 MIN 2018-05-06 15:02:00 FAX: Marilu Larry [phone] [place]: St: ADM FAX: Radhames Jackson [phone] Name: ASTRID SOTO [facility] : 1965 Age/S: 53/F [address] [place] [address] Unit #: [id number] Loc: [place] [address] Phys: Radhames Rodriguez MD Acct: [id number] Dis Date: Status: ADM IN PHONE #: [phone] Exam Date: 05/06/2018 1031 FAX #: [phone] Reason: LUMBAR STENOSIS WITH NEUROGENIC CLAUDICATION EXAMS: CPT CODE: [id number] XR FLUOROSCOPY 0-60 MIN 92188 Intraprocedural fluoroscopy was provided by the Department of Radiology. Any images obtained were interpreted by the surgeon intraoperatively. Reference air kerma: 7.02 mGy, fluoroscopy time 8 seconds SL: [id number] at 1502 Reported and signed by: Joe Verma M.D. CC: Marilu Bruner; Radhames Rodriguez MD Technologist: DENISSE Butcher) Trnscrd Date/Time/By: 05/06/2018 (2062) : By: [email or web address] Orig Print D/T: S: 05/06/2018 (4431) PAGE 1 Signed Report- XR CHEST 2 [id number] 10:48:00 FAX: Nereyda BrunerJorgemariyacali Roth [phone] [place]: St: PRE FAX: Radhames Jackson [phone] Name: ASTRID SOTO [facility] [place] : 1965 Age/S: 53/F [address] [place] [address] Unit #: [id number] Loc: [place] [address] Phys: Radhames Rodriguez MD Acct: [id number] Dis Date: Status: PRE IN PHONE #: [phone] Exam Date: 05/04/2018 1004 FAX #: [phone] Reason: PREOP EXAMS: CPT CODE: [id number] XR CHEST 2 V 72839 Patient: ASTRID SOTO. : 1965; Age: 53 years; Gender: Female. MR: [id number]. Ordering physician: Radhames Rodriguez MD. CHEST 2 VIEWS: HISTORY: Preoperative evaluation, low back pain, lumbar laminectomy. COMPARISON: Chest x-ray 09/01/2015. FINDINGS: Frontal and lateral views of the chest were obtained. The lungs are clear bilaterally. The cardiomediastinal silhouette and pulmonary vasculature are unremarkable. The partially visualized upper abdomen is unremarkable. IMPRESSION: Noacute disease in the chest. SL: [id number] Electronically S igned by Varsha Whitten on 05/04/2018 at 1048 Reported and signed by: Jerrod Whitten M.D. CC: Marilu Bruner; Radhames Rodriguez MD Technologist: Homa Romero RT(R) Trnscrd Date/Time/By: 05/04/2018 (2135) : By: [email or web address] Orig Print D/T: S: 05/04/2018 (8240) PAGE 1 Signed ReportURINALYSIS [id number] 10:19:00 Test Item Value Reference Range Interpretation Comments UA COLOR (test code = COLU) YELLOW YEL/STRAW UA APPEARANCE (test code = CLEAR CLEAR APPU) UA GLUCOSE DIPSTICK (test code NEGATIVE NEGATIVE = DGLUU) UA BILIRUBIN DIPSTICK (test NEGATIVE NEGATIVE code = BILU) UA KETONE DIPSTICK (test code NEGATIVE NEGATIVE = KETU) UA SPECIFIC GRAVITY (test code 1.021 1.005-1.030 N = SGU) UA BLOOD DIPSTICK (test code = NEGATIVE NEGATIVE RACHAEL) UA PH DIPSTICK (test code = 5.0 5.0-7.0 N ANTHONY) UA PROTEIN DIPSTICK (test code NEGATIVE NEGATIVE = PROU) UA UROBILINIOGEN DIPSTICK 0.2 mg/dL 0.2-1.0 (test code = URO) UA NITRITE DIPSTICK (test code NEGATIVE NEGATIVE = ANNIKA) UA LEUKOCYTE ESTERASE DIPSTICK NEGATIVE NEGATIVE (test code = LEUU) UA WBC (test code = WBCU) 0-3 WBC/HPF 0-3 UA RBC (test code = RBCU) 0-3 RBC/HPF 0-3 UA BACTERIA (test code = BACU) NONE SEEN /HPF NONE SEEN UA SQUAMOUS CELLS (test code = 0-5 /HPF NONE SEEN SQU) COMPREHENSIVE METABOLIC [id number] 10:16:00 Test Item Value Reference Range Interpretation Comments SODIUM (test code = NA) 141 mEq/L 134-147 N POTASSIUM (test code = 4.4 mEq/L 3.4-5.0 N K) CHLORIDE (test code = 109 mEq/L 100-108 H CL) CARBON DIOXIDE (test 25 mEq/L 21-33 N code = CO2) ANION GAP (test code = 11 0-20 N GAP) GLUCOSE (test code = 143 mg/dL 70-110 H GLU) BLOOD UREA NITROGEN 15 mg/dL 7-18 N (test code = BUN) GLOMERULAR FILTRATION 75.3 90-95 L Units of measure = RATE (test code = GFR) ml/mi n/1.73 m2 CREATININE (test code = 0.8 mg/dL 0.6-1.3 N CREAT) TOTAL PROTEIN (test 7.6 g/dL 6.4-8.2 N code = PROT) ALBUMIN (test code = 3.70 g/dL 3.4-5.0 N ALB) CALCIUM (test code = 9.0 mg/dL 8.0-10.5 N CA) BILIRUBIN TOTAL (test 0.30 mg/dL 0.0-1.0 N code = BILT) SGOT/AST (test code = 17 IUnit/L 15-37 N AST) SGPT/ALT (test code = 30 IUnit/L 15-65 N ALT) ALKALINE PHOSPHATASE 88 IUnit/L 20-125 N TOTAL (test code = ALKP) PROTHROMBIN [id number] 10:09:00 Test Item Value Reference Range Interpretation Comments PROTHROMBIN TIME 11.2 SECONDS 9.3-12.9 N PATIENT (test code = PTP) INTERNATIONAL NORMAL 1.0 0.8-1.2 N TARGET RATIO (test code = INR BY IN DICATION INR) Indication INR1. Prophyl axis of venous thrombos is 2.0 - 3. 0 (orthopedic gio kirstin), Prophylaxis of venous thrombos is (other than hig h-risk surgery), Brenna tment of Deep Vein Thrombosis/Pulm onary Embolism, Preve ntion of systemic emb olism - Tissue heart va lves, Acute Myocardia l Infarction (to prevent systemic embo lism), Valvular heart disease, Atri al Fibrillation, Bileaflet mecha nical valve in aortic position.2. Mec hanical prosthetic valv es (high risk), 2.5 - 3.5 Presence of Lupus Anticoagu lant or Antiphospholi pid Antibodies, Pre vention of systemic e mbolism - Acute Myocard ial Infarction (t o prevent recurre nt infarct). THROMBOPLASTIN TIME [id number] 10:09:00 Test Item Value Reference Range Interpretation Comments THROMBOPLASTIN TIME 30.7 Seconds 25.0-39.5 N Ther apeutic PARTIAL (test code = Range: 61.8-83.8 PTT) Sec Effective 04/19/2013 CBC W/AUTO [id number] 10:02:00 Test Item Value Reference Range Interpretation Comments WHITE BLOOD CELL (test code = 9.24 x10 3/uL 4.5-11.0 N WBC) RED BLOOD CELL (test code = 4.99 x10 6/uL 3.54-5.02 N RBC) HEMOGLOBIN (test code = HGB) 15.0 g/dL 11.0-15.0 N HEMATOCRIT (test code = HCT) 47.0 % 33.0-45.0 H MEAN CELL VOLUME (test code = 94.2 fL 81.0-99.0 N MCV) MEAN CELL HGB (test code = MCH) 30.1 pg 27.0-33.0 N MEAN CELL HGB CONCETRATION 31.9 g/dL 33.0-37.0 L (test code = MCHC) RED CELL DISTRIBUTION WIDTH CV 12.8 % 11.5-14.5 N (test code = RDW) RED CELL DISTRIBUTION WIDTH SD 44.2 fL 37.0-54.0 N (test code = RDW-SD) PLATELET COUNT (test code = 308 x10 3/uL 150-400 N PLT) MEAN PLATELET VOLUME (test code 9.7 fL 7.0-9.0 H = MPV) NEUTROPHIL % (test code = NT%) 59.9 % 56.0-77.0 N IMMATURE GRANULOCYTE % (test 0.4 % 0.0-2.0 N code = IG%) LYMPHOCYTE % (test code = LY%) 33.4 % 14.0-32.0 H MONOCYTE % (test code = MO%) 4.4 % 4.8-9.0 L EOSINOPHIL % (test code = EO%) 1.3 % 0.3-3.7 N BASOPHIL % (test code = BA%) 0.6 % 0.0-2.0 N NUCLEATED RBC % (test code = 0.0 % 0-0 N NRBC%) NEUTROPHIL # (test code = NT#) 5.52 x10 3/uL 2.0-7.6 N IMMATURE GRANULOCYTE # (test 0.04 x10 3/uL 0.00-0.03 H code = IG#) LYMPHOCYTE # (test code = LY#) 3.09 x10 3/uL 1.0-3.8 N MONOCYTE # (test code = MO#) 0.41 x10 3/uL 0.1-0.8 N EOSINOPHIL # (test code = EO#) 0.12 x10 3/uL 0.0-0.2 N BASOPHIL # (test code = BA#) 0.06 x10 3/uL 0.0-0.2 N NUCLEATED RBC # (test code = 0.00 x10 3/uL 0.0-0.1 N NRBC#) MANUAL DIFF REQUIRED (test code NO = MDIFF) MR Shoulder wo contrast [id number] 10:07:00Exam: Right Shoulder wo contrast MRIClinical Indication: - M25.511 Pain in right shoulder Juan Pablo rison: Right shoulder radiographs 09/15/2017TECHNIQUE: Axial, oblique coronal, and oblique sagittal MR images of the formerly [facility].IV contrast: None.FINDINGS:ROTATOR CUFF AND ASSOCIATED STRUCTURESRotator cuff: Focal lobulated area of dark signal is present throughout thesupraspinatus infraspinatus tendon junction consistent with calcification seenon plain films and measures 4 x 8 x 4 mm. There is associated thickening andintermediate signal in the supraspinatus and infraspinatus tendons with overallfindings consistent with calcific tendinitis. Partial-thickness bursal sidedtear is present at the anterior insertion of the supraspinatus tendon involvingabout 25% thickness and measuring 0.2 cm AP. There is tendinosis of thesubscapularis tendon without significant tear. The teres minor tendon appearsintact.Bursa: Trace fluid and edema in the subacromial/subdeltoid bursa.Musculature: There is no muscular tear, contusion, or atrophy.Acromioclavicular joint: There are moderate degenerative changes of theacromioclavicular joint. A type 1 acromion configuration is noted. Mildsubacromial spurring is present.OSSEOUS STRUCTURESThere are no fractures or regions of abnormal bone marrow signal intensity.LONGBICIPITAL TENDONThe biceps tendon is normally situated within the bicipital groove. No completeor partial biceps tendon tear is present. Fluid distention of the bicipitaltendon sheath out of proportionto joint fluid is consistent withtenosynovitis.GLENOHUMERAL JOINTJoint fluid: There is no significant glenohumeral joint effusion.Cartilage: No focal hyaline cartilage defects are noted.Labrum: Degenerative tearing of the superior labrum. No paralabral cysts areseen.OTHER FINDINGS:None.IMPRESSION:1. Findings consistent with calcific tendinitis involving the supraspinatusand infraspinatus tendons.2. Low-grade partial-thickness bursal sided tear at the anterior insertion ofthe supraspinatus tendon.3. Subscapularis tendinosis without significant tear.4. Biceps tenosynovitis.5. Degenerative tearing of the superior labrum.6. Trace fluid and edema in the subacromial/subdeltoid bursa, suggestcorrelation for bursitis.7. Moderate AC joint degenerative arthropathy.SL: [id number]--Dmpk by: Radhames Dean MDDictated Date/time: 11/17/17 09:02Electronically Signed by: Radhames Dean MD 11/17/1808:20FINAL REPORTUnDelta Community Medical Center Physicians
[2020-09-29 11:30] LABS: Absolute Lymphocytes (CBC) 1.2 K/uL (0.7-4.9); Basophils % 0.5 % (0-1.3); Hematocrit 42.7 % (36.0-45.0); Lymphocytes % 8.7 % (15.3-44.8); MPV 8.1 fL (7.6-11.3); RBC Red Blood Cell Count 4.83 M/uL (3.86-4.86)
[2020-09-29 11:41] LABS: BUN Blood Urea Nitrogen 11 mg/dL (7-18); Bicarbonate 28 mmol/L (21-32); Glucose Level 151 mg/dL (74-106); Potassium 4.3 mmol/L (3.5-5.1); Sodium Level 137 mmol/L (136-145)
[2020-09-29] MEDS ORDERED: IPRATROPIUM BROM 0.5MG/2.5ML ONE ×2 (11:42→14:32)
[2020-09-29] MEDS ORDERED: METHYLPREDNISOLONE 125 MG INJ ONE (11:42)
[2020-09-29] MEDS ORDERED: ALBUTEROL 2.5 MG/3 ML NEB SOL ONE ×2 (11:42→14:32)
--- NOTE | 2020-09-29 12:18 | RAD REPORT ---
EXAM DESCRIPTION: Chuckie Single View09/29/2020 11:41 am CLINICAL HISTORY: Cough COMPARISON: none FINDINGS: Examination is suboptimal secondary to technical factors. Lungs appear grossly clear. Heart is normal size
[2020-09-29 12:46] LABS: Blood Morphology Comment NOT SEEN (NOT SEEN); Platelet Estimate ADEQ
--- NOTE | 2020-09-29 13:57 | ER ---
Nurse's Notes [facility] Name: Medina Ramires Age: 55 yrs Sex: Female : 1965 Arrival Date: 09/29/2020 Time: 10:32 Bed 13 Private MD: Diagnosis: Acute bronchitis, unspecified Presentation: 09/29 10:57 Chief complaint: Patient states: cough and SOB that began 4 days ago. Pt denies fever. aa5 10:57 Coronavirus screen: cough unrelated to allergies, shortness of breath. Ebola Screen: aa5 Patient negative for fever greater than or equal to 101.5 degrees Fahrenheit, and additional compatible Ebola Virus Disease symptoms. Initial Sepsis Screen: Does the patient meet any 2 criteria? RR > 20 per min. HR > 90 bpm. Does the patient have a suspected source of infection? Yes:. Risk Assessment: Do you want to hurt yourself or someone else? Patient reports no desire to harm self or others. Onset of symptoms was September 2020. 10:57 Method Of Arrival: Wheelchair aa5 10:57 Acuity: KEIKO 3 aa5 Triage Assessment: 12:39 Respiratory: the patient has mild shortness of breath. ap3 12:39 Respiratory: Onset: The symptoms/episode began/occurred over the "last few weeks" per ap3 patient. 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 - Social history:: Smoking status: Patient reports the use of cigarette tobacco products, smokes one pack cigarettes per day. Screenin:38 Abuse screen: Denies threats or abuse. Nutritional screening: No deficits noted. ap3 Tuberculosis screening: No symptoms or risk factors identified. Fall Risk None identified. Assessment: 12:26 General: Appears comfortable, Behavior is calm, cooperative, combative. ap3 12:36 Pain: Complains of pain in chest Quality of pain is described as aching, Aggravated by ap3 coughing. Neuro: Level of Consciousness is awake, alert, obeys commands, Oriented to person, place, time, situation, Gait is steady. Cardiovascular: Rhythm is sinus tachycardia. Respiratory: Airway is patent Respiratory effort is even, unlabored, Respiratory pattern is regular, symmetrical, Breath sounds are clear in left posterior upper lobe, left posterior lower lobe, right posterior middle lobe and right posterior lower lobe Breath sounds with wheezes in right posterior upper lobe. Respiratory: Reports cough that is non-productive, dry. GI: No signs and/or symptoms were reported involving the gastrointestinal system. : No signs and/or symptoms were reported regarding the genitourinary system. EENT: No signs and/or symptoms were reported regarding the EENT system. 14:21 General: awaiting completion of nebulizing treatment prior to discharge. ap3 Vital Signs: 10:57 BP 101 / 70; Pulse 99; Resp 26 S; Temp 98.4(O); Pulse Ox 94% on R/A; Weight 95.25 kg aa5 (R); Height 5 ft. 4 in. (162.56 cm) (R); Pain 9/10; 11:54 BP 114 / 77; Pulse 99; Resp 20; Pulse Ox 98% ; rb3 13:13 BP 120 / 75; Pulse 113; Resp 18; Pulse Ox 92% on R/A; ap3 14:22 BP 120 / 77; Pulse 110; Pulse Ox 100% ; ap3 10:57 Body Mass Index 36.05 (95.25 kg, 162.56 cm) aa5 ED Course: 10:32 Patient arrived in ED. as 10:57 Arm band placed on. aa5 10:59 Tracy Zamudio [facility]-C [facility] kb 10:59 Bryan Funez MD is Attending Physician. kb 11:01 Marti Nixon, RN is Primary Nurse. ca1 11:02 Triage completed. aa5 11:05 Tyra Ortiz, JAYANT is Primary Nurse. ap3 11:15 Initial lab(s) drawn, by me, sent to lab. Inserted saline lock: 20 gauge in right kj1 antecubital area, using aseptic technique. Blood collected. 11:42 Chest Single View XRAY In Process Unspecified. EDMS 12:39 Patient has correct armband on for positive identification. Bed in low position. Call ap3 light in reach. Side rails up X2. Pulse ox on. NIBP on. Door closed. Noise minimized. 14:39 No provider procedures requiring assistance completed. IV discontinued, intact, ap3 bleeding controlled, No redness/swelling at site. Pressure dressing applied. Administered Medications: 11:25 Drug: SOLU-Medrol (methylPrednisoLONE) 125 mg Route: IVP; Site: right antecubital; rb3 14:38 Follow up: Response: No adverse reaction ap3 11:29 Drug: DuoNeb (albuterol 2.5 mg, ipratropium 0.5 mg) (3:1) (2.5 mg - 0.5 mg) 3 ml Route: rb3 Nebulizer; 14:38 Follow up: Response: No adverse reaction ap3 14:19 Drug: Pepcid (famotidine) 20 mg Route: IVP; Site: right antecubital; ap3 14:38 Follow up: Response: No adverse reaction ap3 14:19 Drug: Albuterol 2.5 mg Route: Inhalation; ap3 14:19 Drug: AtroVENT (ipratropium) Aerosol 0.5 mg Route: Inhalation; ap3 14:19 Drug: Tessalon Perle (benzonatate) 100 mg Route: PO; ap3 14:38 Follow up: Response: No adverse reaction ap3 Outcome: 13:57 Discharge ordered by . kb 14:39 Discharged to home ambulatory. ap3 14:39 Condition: good 14:39 Discharge instructions given to patient, Instructed on discharge instructions, follow up and referral plans. medication usage, Demonstrated understanding of instructions, follow-up care, medications, Prescriptions given X 3. 14:39 Patient left the ED. ap3 Signatures: Dispatcher [employer] EDMS Tracy Zamudio, PARTHA HALE-Jacy Alonso Audri, RN RN aa5 Tyra Ortiz RN RN ap3 Marti Nixon RN RN ca1 Cherie Zamudio kj1 Coco Bautista, RN RN rb3 Corrections: (The following items were deleted from the chart) 11:55 11:26 CORONAVIRUS+ drawn and sent. rb3 EDMS
--- NOTE | 2020-09-29 13:57 | EDPHYS ---
Physician Documentation [facility] Name: Medina Ramires Age: 55 yrs Sex: Female : 1965 Arrival Date: 09/29/2020 Time: 10:32 Bed 13 Private MD: ED Physician Bryan Funez HPI: 09/29 12:52 This 55 yrs old Female presents to ER via Wheelchair with complaints of kb Shortness Of Breath. 12:52 The patient has shortness of breath at rest. Onset: The symptoms/episode began/occurred kb 4 day(s) ago. Duration: The symptoms are continuous. The patient's shortness of breath is aggravated by nothing, is alleviated by nothing. Associated signs and symptoms: Pertinent positives: non-productive cough, Pertinent negatives: chest pain, productive cough, diaphoresis, dizziness, fever, hemoptysis, loss of consciousness, nausea, numbness in extremities, visual changes, vomiting. Severity of symptoms: At their worst the symptoms were mild moderate in the emergency department the symptoms are unchanged. The patient has not experienced similar symptoms in the past. The patient has not recently seen a physician. Pt reports she has had cough and shortness of breath for 4 days. States she believes something blew in that has triggered this. Pt smoke cigarettes, but never been diagnosed with COPD. 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 - Social history:: Smoking status: Patient reports the use of cigarette tobacco products, smokes one pack cigarettes per day. ROS: 12:51 Constitutional: Negative for fever, chills, and weight loss. kb 12:51 Respiratory: Positive for cough, shortness of breath, wheezing, Negative for dyspnea on exertion, hemoptysis, orthopnea, pleurisy, sputum production. 12:51 All other systems are negative. Exam: 12:51 Constitutional: This is a well developed, well nourished patient who is awake, alert, kb and in no acute distress. Head/Face: Normocephalic, atraumatic. ENT: Moist Mucous membranes Cardiovascular: Regular rate and rhythm with a normal S1 and S2. No gallops, murmurs, or rubs. No pulse deficits. Abdomen/GI: Soft, non-tender. No distention Skin: Warm, dry with normal turgor. Normal color. MS/ Extremity: Pulses equal, no cyanosis. Neurovascular intact. Full, normal range of motion. Neuro: Awake and alert, GCS 15, oriented to person, place, time, and situation. Moves all extremities. Normal gait. Psych: Awake, alert, with orientation to person, place and time. Behavior, mood, and affect are within normal limits. 12:51 Respiratory: mild respiratory distress is noted, Respirations: normal, Breath sounds: wheezing: expiratory that is mild, that is moderate, is heard in the left posterior lower lobe and right posterior lower lobe. Vital Signs: 10:57 BP 101 / 70; Pulse 99; Resp 26 S; Temp 98.4(O); Pulse Ox 94% on R/A; Weight 95.25 kg aa5 (R); Height 5 ft. 4 in. (162.56 cm) (R); Pain 9/10; 11:54 BP 114 / 77; Pulse 99; Resp 20; Pulse Ox 98% ; rb3 13:13 BP 120 / 75; Pulse 113; Resp 18; Pulse Ox 92% on R/A; ap3 14:22 BP 120 / 77; Pulse 110; Pulse Ox 100% ; ap3 10:57 Body Mass Index 36.05 (95.25 kg, 162.56 cm) aa5 MDM: 10:59 Patient medically screened. kb 12:51 Data reviewed: vital signs, nurses notes. Data interpreted: Pulse oximetry: on room air kb is 98 %. Interpretation: normal. Counseling: I had a detailed discussion with the patient and/or guardian regarding: the historical points, exam findings, and any diagnostic results supporting the discharge/admit diagnosis, lab results, radiology results, the need for outpatient follow up, a family practitioner, to return to the emergency department if symptoms worsen or persist or if there are any questions or concerns that arise at home. 09/29 11:03 Order name: CBC with Diff; Complete Time: 12:50 kb 09/29 11:03 Order name: Basic Metabolic Panel; Complete Time: 11:44 kb 09/29 11:03 Order name: Chest Single View XRAY; Complete Time: 12:21 kb 09/29 12:46 Order name: Manual Differential; Complete Time: 12:50 EDMS 09/29 12:50 Order name: SARS-COV-2 RT PCR; Complete Time: 12:51 EDMS 09/29 11:03 Order name: IV Start; Complete Time: 11:26 kb Administered Medications: 11:25 Drug: SOLU-Medrol (methylPrednisoLONE) 125 mg Route: IVP; Site: right antecubital; rb3 14:38 Follow up: Response: No adverse reaction ap3 11:29 Drug: DuoNeb (albuterol 2.5 mg, ipratropium 0.5 mg) (3:1) (2.5 mg - 0.5 mg) 3 ml Route: rb3 Nebulizer; 14:38 Follow up: Response: No adverse reaction ap3 14:19 Drug: Pepcid (famotidine) 20 mg Route: IVP; Site: right antecubital; ap3 14:38 Follow up: Response: No adverse reaction ap3 14:19 Drug: Albuterol 2.5 mg Route: Inhalation; ap3 14:19 Drug: AtroVENT (ipratropium) Aerosol 0.5 mg Route: Inhalation; ap3 14:19 Drug: Tessalon Perle (benzonatate) 100 mg Route: PO; ap3 14:38 Follow up: Response: No adverse reaction ap3 Disposition Summary: 09/29/20 13:57 Discharge Ordered Location: Home kb Condition: Stable kb Diagnosis - Acute bronchitis, unspecified kb Followup: kb - With: Emergency Department - When: As needed - Reason: Worsening of condition Followup: kb - With: Private Physician - When: 2 - 3 days - Reason: Recheck today's complaints, Continuance of care, Re-evaluation by your physician Discharge Instructions: - Discharge Summary Sheet kb - Acute Bronchitis, Adult, [id number] kb Forms: - Medication Reconciliation Form kb - Thank You Letter kb - Antibiotic Education kb - Prescription Opioid Use kb Prescriptions: - albuterol sulfate 90 mcg/actuation Inhalation aerosol powdr breath activated - inhale 2 puff by INHALATION route every 4-6 hours As needed; 1 Inhaler; kb Refills: 0, Product Selection Permitted - Prednisone 20 mg Oral Tablet - take 1 tablet by ORAL route once daily for 5 days; 5 tablet; Refills: 0, kb Product Selection Permitted - Zithromax 500 mg Oral Tablet - take 1 tablet by ORAL route once daily for 5 days; 5 tablet; Refills: 0, kb Product Selection Permitted Signatures: Dispatcher [employer] EDTracy Butterfield, TRAFFIC ENGINEER-C TRAFFIC ENGINEER-Melody Montgomery RN RN aa5 Tyra Ortiz RN RN ap3 Coco Bautista RN RN rb3 Corrections: (The following items were deleted from the chart) 11:55 11:03 CORONAVIRUS+LAB.BRZ ordered. EDMO EDMS
[2020-09-29] MEDS ORDERED: BENZONATATE 100 MG CAP PO ONE (14:32)
[2020-09-29] MEDS ORDERED: FAMOTIDINE 20 MG/2 ML VIAL IV ONE (14:32)
[2020-09-29 14:50] VITALS: TEMP 98.4
[2020-09-29 14:56] VITALS: BP 120/77; O2SAT 100
== END 2020-09-29 14:39 | disposition home or self-care (01) ==
LOC: ER 10:31
DX: J20.9 Acute bronchitis, unspecified (principal); I10 Essential (primary) hypertension; F17.210 Nicotine dependence, cigarettes, uncomplicated; Z20.822 Contact with and (suspected) exposure to COVID-19
CPT/HCPCS: 85025; 80048; 36415; 71045; 96375; 96374; 99285; U0003; J2930